=== PATIENT | female | born 1955 | race Caucasian/White ===

== ENCOUNTER 2016-11-09 11:58 | Emergency (ER) | payer MEDICARE ==
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
--- NOTE | 2016-11-09 14:13 | ED MAR SUMMARY ---
..... Medication Administration Record [facility] [address] [place] [place], [place] [id number] Patient: SD ENAMORADO Visit ID: [id number] 61y, F Weight: 70.3 kg Height/Length: 69 in BMI: 22.9 ALLERGIES: Azithromycin, Sulfa Antibiotics
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
--- NOTE | 2016-11-09 14:13 | ED MED RECONCILIATION SUMMARY ---
Patient: SD ENAMORADO Medication Reconciliation Report [facility] VisitID: [id number] [address] [place] [address] 61y, F Registration Date/Time: 11/09/2016 Weight: 70.3 kg Height/Length: 69 in. BMI: 22.9 ALLERGIES: Azithromycin, Sulfa Antibiotics The patient's Home Medications are listed below: CONTINUE TAKING THE FOLLOWING MEDICATIONS: FLUoxetine HCl Oral LORazepam Oral MetFORMIN HCl Oral The source(s) of the original Home Medication information: Not obtained. The following Medications were given to the patient in the Emergency Department: None. The following Medications were prescribed to the patient: None.
--- NOTE | 2016-11-09 14:13 | ED MAR SUMMARY ---
..... Medication Administration Record [facility] [address] [place], [place] [id number] Patient: SD ENAMORADO Visit ID: [id number] 61y, F Weight: 70.3 kg Height/Length: 69 in BMI: 22.9 ALLERGIES: Azithromycin, Sulfa Antibiotics
--- NOTE | 2016-11-09 14:13 | ED MED RECONCILIATION SUMMARY ---
Patient: SD ENAMORADO Medication Reconciliation Report [facility] VisitID: [id number] [address] [place] [address] 61y, F Registration Date/Time: 11/09/2016 Weight: 70.3 kg Height/Length: 69 in. BMI: 22.9 ALLERGIES: Azithromycin, Sulfa Antibiotics The patient's Home Medications are listed below: CONTINUE TAKING THE FOLLOWING MEDICATIONS: FLUoxetine HCl Oral LORazepam Oral MetFORMIN HCl Oral The source(s) of the original Home Medication information: Not obtained. The following Medications were given to the patient in the Emergency Department: None. The following Medications were prescribed to the patient: None.
== END 2016-11-09 13:54 | disposition home or self-care (01) ==
LOC: ED SRH 11:58
DX: S00.03XA Contusion of scalp, initial encounter (principal); S20.02XA Contusion of left breast, initial encounter; S30.0XXA Contusion of lower back and pelvis, initial encounter; S40.021A Contusion of right upper arm, initial encounter; S40.022A Contusion of left upper arm, initial encounter; S40.012A Contusion of left shoulder, initial encounter; S70.02XA Contusion of left hip, initial encounter; Y04.8XXA Assault by other bodily force, initial encounter; Y93.89 Activity, other specified; Y92.019 Unspecified place in single-family (private) house as the place of occurrence of the external cause